=== PATIENT | male | born 1965 | race Caucasian/White ===

== ENCOUNTER 2017-03-09 16:29 | Inpatient (IN) | payer BC ==
--- NOTE | ~2017-03-09 | US146 ---
[facility] A Service of [facility] & [facility] RADIOLOGY TEXT RESULTS PATIENT: PARTH ERICKSON LOCATION: C3A 316-01 : 66 UNIT #: [id number] AGE: [address]: Gavin Hansen MD SEX: M ORDER DR: [id number] [place] [id number] [facility]. [place], [place] [address] [id number] MR#: [id number] Acc #: [id number] NAME: PARTH ERICKSON : 1965 SEX: M STUDY DATE/TIME: 03/13/2017 15:31 UNIT: C3A PCU ROOM: [facility] STUDY DESCRIPTION: US Vein Map Hemodial Access Attending Physician: Gavin Hansen M.D. Ordering Physician: Samreen Diana M.D. Primary Care Physician: Naif Matos M.D. MEDICAL IMAGING REPORT This report is preliminary unless electronic signature is present EXAM Bilateral upper extremity venous mapping. HISTORY Chronic renal disease, on dialysis. FINDINGS The right and left cephalic and basilic veins are widely patent throughout their course without evidence of thrombosis or intraluminal debris. The right cephalic vein is 8 mm proximal arm, 1.1 mm mid-arm, 0.8 mm distal arm, 1.6 mm at the elbow, 0.8 mm proximal forearm, 1.0 mm mid-forearm, and 1.7 mm distal forearm. The right basilic vein is 5.0 mm proximal arm, 3.4 mm mid-arm, 3.4 mm distal arm, 2.6 mm at the elbow, 2.8 mm proximal forearm, 2.2 mm mid-forearm, and 1.2 mm distal forearm. The left cephalic vein is 3.8 mm proximal arm, 3.6 mm at the mid- and distal forearm, 3.6 mm at the elbow, 2.7 mm proximal forearm, 2.4 mm mid-forearm, and 2.0 mm distal forearm. The left basilic vein is 4.2 mm proximal arm, 3.2 mm mid-arm, 3.1 mm distal arm, 2.8 mm at the elbow, 2.1 mm proximal forearm, 1.2 mm mid-forearm, and 0.9 mm distal forearm. The right and left brachial arteries are widely patent with normal appearing waveforms. IMPRESSION 1. No evidence of right or left upper extremity superficial venous thrombosis. 2. The right cephalic vein is not adequate for use as a hemodialysis access. 3. The right basilic vein is adequate for use as a hemodialysis access from the proximal arm to the proximal forearm. 4. The left cephalic vein is adequate for use as a hemodialysis access from the proximal arm to the mid-forearm. [facility] A Service of [facility] RADIOLOGY TEXT RESULTS PATIENT: PARTH ERICKSON LOCATION: A 316-01 : 66 UNIT #: [id number] AGE: [address]: Gavin Hansen MD SEX: M ORDER DR: 5. The left basilic vein is adequate for use as a hemodialysis access from the proximal arm to the elbow. Dictated by... Samreen Diana M.D. THIS IS AN ELECTRONICALLY VERIFIED REPORT Samreen Diana M.D. at 03/21/2017 11:01 AM PEDRO LUIS/elijah TD: 03/13/2017 22:42 JOB #: [id number] MEDICAL IMAGING REPORT Page 1 of 1 COPY
--- NOTE | ~2017-03-09 | CR63 ---
[facility] A Service of [facility] RADIOLOGY TEXT RESULTS PATIENT: PARTH ERICKSON LOCATION: [facility] 316-01 : 66 UNIT #: [id number] AGE: [address]: Gavin Hansen MD SEX: M ORDER DR: [id number] [facility] [address] [facility]. [place], [place] [address] [id number] I MR#: [id number] Acc #: [id number] NAME: PARTH ERICKSON : 1965 SEX: M STUDY DATE/TIME: 03/12/2017 09:08 UNIT: [address] ROOM: [facility] STUDY DESCRIPTION: CR Chest 2 View Attending Physician: Gavin Hansen M.D. Ordering Physician: Gavin Hansen M.D. Primary Care Physician: Naif Matos M.D. MEDICAL IMAGING REPORT This report is preliminary unless electronic signature is present EXAM Chest 2 views, 03/12/2017 09:08 hours HISTORY Patient with shortness of air and cough today. History of hypertension, smoking, correlate with VQ scan performed today. COMPARISON 03/09/2017 FINDINGS Upright PA and lateral views of the chest demonstrate normal cardiac, mediastinal and hilar contours. Patchy right basilar density has improved since 03/09/2017. Lateral views suggest small bilateral effusions, right greater than left. IMPRESSION Patchy density at the right lung base and left lung base have improved from 03/09/2017. There is new blunting of the right costophrenic sulcus on the PA view not seen on 03/09/2017 with lateral views suggesting small to moderate bilateral effusions which are likely new. Dictated by... Consuelo Valdez M.D. THIS IS AN ELECTRONICALLY VERIFIED REPORT Consuelo Valdez M.D. at 03/12/2017 2:29 PM Eunice TD: 03/12/2017 10:10 JOB #: [id number] MEDICAL IMAGING REPORT [facility] A Service of [facility] & [facility] RADIOLOGY TEXT RESULTS PATIENT: PARTH ERICKSON LOCATION: A 316-01 : 66 UNIT #: [id number] AGE: [address]: Gavin Hansen MD SEX: M ORDER DR: Page 1 of 1 COPY
--- NOTE | ~2017-03-09 | CO ---
Unit #: [id number] #: [id number] Patient: PARTH ERICKSON [id number] [address] [address] [id number] I MR#: [id number] NAME: PARTH ERICKSON ROOM: 316 Age: 52 Sex: M Admission Date: 03/09/2017 : 1965 Attending Physician: Gavin Hansen M.D. Primary Care Physician: Naif Matos M.D. Consultation Date: 03/10/2017 CONSULTATION REPORT REASON FOR CONSULT Acute renal failure. Thank you very much for this consultation. HISTORY OF PRESENT ILLNESS The patient is a 52-year-old white male with a history of diabetes for more than 40 years as well as hypertension, who does not follow with a physician regularly. He has a history of significant hypertension, but has not been medicating that recently. For the last 3 days, he has developed some worsening shortness of breath with cough, which caused him to present to the emergency room. In the emergency room, he was found to have pneumonia and extremely elevated blood pressure as well as elevated creatinine to 5.9 with an eGFR of 10. He was subsequently admitted for further workup of his renal failure, treatment of his hypertension and his pneumonia, and Nephrology consult has been requested. 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 He denies any hematuria or dysuria. No history of kidney stones. No chronic NSAID use. He otherwise denies any chest pain or shortness of breath. No nausea, vomiting, or diarrhea today, but he has had nausea and some decreased appetite recently. No metallic taste in his mouth. No itching. He has noticed some pedal edema. No other complaints. PAST MEDICAL HISTORY As above. MEDICATIONS His current medications at home include Excedrin and insulin. ALLERGIES No known drug allergies. FAMILY HISTORY Noncontributory. SOCIAL HISTORY He does smoke. REVIEW OF SYSTEMS A 12-system review of systems is negative except as per HPI. PHYSICAL EXAMINATION VITAL SIGNS: Blood pressure 170s to 200s over 70s to 100s, heart rate 90s to 100s, respirations 18 to 20, T-max 99.8. Unit #: [id number] #: [id number] Patient: PARTH ERICKSON GENERAL: He is alert and oriented, in no acute distress. HEENT: Head is normocephalic and atraumatic. ENT; pupils are equal, round, and reactive to light. Oropharynx is clear. NECK: Supple. No JVD. LUNGS: Clear to auscultation bilaterally. HEART: Regular rate and rhythm. No murmurs, gallops, or rubs. ABDOMEN: Soft and nontender with positive bowel sounds. EXTREMITIES: He has trace lower extremity edema. NEUROLOGIC: Cranial nerves II through XII intact. Testing gait is not assessed. DIAGNOSTIC STUDIES LABORATORY RESULTS: Sodium 139, potassium 4.2, chloride 113, bicarb 19, BUN 53, creatinine 5.9, glucose 134, calcium 7.9. White count 10.4, hemoglobin 12.6, platelets 267. IMPRESSION 1. Acute kidney injury versus chronic kidney disease. The patient's eGFR is 10. Awaiting urinalysis and ultrasound. The patient likely has at least some chronic kidney disease from his history of diabetes and hypertension. Possibly nearing end-stage renal disease if this is truly chronic. He does have some uremic symptoms. Need to exclude obstruction, which will be determined by the ultrasound. 2. Hypertensive urgency. 3. Pneumonia. 4. Diabetes type 1. 5. Metabolic acidosis. PLAN Followup urinalysis and ultrasound. Titrate BP medications. Cardiology has started amlodipine already. We will start oral bicarbonate and check phosphorus and PTH level in the morning. Discussed continued NSAID avoidance. If the patient does appear to have severe chronic kidney disease, then we would recommend AV fistula placement during this hospitalization. He may not require dialysis initiation, but it will depend on his symptomatology. In any event, he is likely to need dialysis in the near future and therefore adequate preparation would be in his best interest. We will have further recommendations as his hospital course develops. Dictated by... Harshil Giraldo M.D. ALLYN/waldemar TD: 03/10/2017 16:49 JOB #: [id number] Unit #: [id number] #: [id number] Patient: PARTH ERICKSON CONSULTATION REPORT Page 1 of 1 X Harshil Giraldo MD X CONSULTATION REPORT
--- NOTE | ~2017-03-09 | CR72 ---
[facility] A Service of [facility] & [facility] RADIOLOGY TEXT RESULTS PATIENT: PARTH ERICKSON LOCATION: [facility] [address]-58 : 66 UNIT #: [id number] AGE: [address]: Ag Turcios MD SEX: M ORDER DR: [id number] [facility] [address] [place], [place] [address] [id number] MR#: [id number] Acc #: [id number] NAME: PARTH ERICKSON : 1965 SEX: M STUDY DATE/TIME: 03/09/2017 18:33 UNIT: [facility] ROOM: STUDY DESCRIPTION: CR Chest Single View Portable Attending Physician: Myke Enamorado M.D. Ordering Physician: Ed Doc Christopher Acosta Primary Care Physician: Naif Matos M.D. MEDICAL IMAGING REPORT This report is preliminary unless electronic signature is present EXAM Frontal chest 03/09/2017 INDICATIONS 52-year-old male with shortness of air, hypertension, cough; symptoms 3-4 days. Diabetes. Tobacco abuse. TECHNIQUE Frontal chest; no comparisons. FINDINGS Lung volumes are low. Cardiac silhouette is within normal limits. The vascularity is unremarkable. There is bronchovascular crowding. Hazy patchy opacities are present in the right lung base. These may represent areas of atelectasis or developing pneumonia in the appropriate clinical context. Probable atelectasis or, less likely, infiltrate in the left lung base. No effusion or pneumothorax. Imaging followup to clearing after appropriate therapy is recommended. IMPRESSION 1. Atelectasis or developing infiltrate in the right lung base. Probable atelectasis in the left lung base. Follow up to clearing recommended. STAT * RESULT Dictated by... Raghav Chavira M.D. THIS IS AN ELECTRONICALLY VERIFIED REPORT Raghav Chavira M.D. at 03/09/2017 10:30 PM TRICIA/maria eugenia [facility] A Service of [facility] & [facility] RADIOLOGY TEXT RESULTS PATIENT: PARTH ERICKSON LOCATION: [facility] [address]11-17 : [birth year] UNIT #: [id number] AGE: [address]: Ag Turcios MD SEX: M ORDER DR: TD: 03/09/2017 19:11 JOB #: [id number] MEDICAL IMAGING REPORT Page 1 of 1 COPY
--- NOTE | ~2017-03-09 | NM69 ---
[facility] A Service of [facility] & [facility] RADIOLOGY TEXT RESULTS PATIENT: PARTH ERICKSON LOCATION: [facility] : 67 UNIT #: [id number] AGE: [address]: Gavin Hansen MD SEX: M ORDER DR: [id number] [facility] [address] [place], [place] [address] [id number] I MR#: [id number] Acc #: [id number] NAME: PARTH ERICKSON : 1965 SEX: M STUDY DATE/TIME: 03/12/2017 10:54 UNIT: A PCU ROOM: [facility] STUDY DESCRIPTION: NM Pulm Vent and Perf Attending Physician: Gavin Hansen M.D. Ordering Physician: Sharmila Patton M.D. Primary Care Physician: Naif Matos M.D. MEDICAL IMAGING REPORT This report is preliminary unless electronic signature is present EXAM Ventilation-perfusion lung scan. HISTORY 52-year-old male with shortness of air cough, worsening over last 3 days. History of pneumonia. COMPARISON PA and lateral chest 03/12/2017. TECHNIQUE Ventilation-perfusion lung scan was performed in standard 8 projections. Perfusion agent 5.42 mCi technetium-99m MAA and ventilation agent 36 mCi technetium-99m DTPA aerosol. FINDINGS Examination demonstrates normal perfusion throughout all bronchopulmonary segments. Some central deposition of activity within the central airways on THE ventilation scan may be indicative of small airway disease. No ventilation-perfusion mismatches are identified. Study is considered low probability for pulmonary embolus. IMPRESSION 1. Low probability ventilation-perfusion lung scan for pulmonary embolus. 2. Central deposition of ventilatory agent may be indicative of underlying small airway disease. Dictated by... Gordo Juan M.D. THIS IS AN ELECTRONICALLY VERIFIED REPORT [facility] A Service of [facility] & [facility] RADIOLOGY TEXT RESULTS PATIENT: PARTH ERICKSON LOCATION: [facility] 316 : 66 UNIT #: [id number] AGE: [address]: Gavin Hansen MD SEX: M ORDER DR: Gordo Juan M.D. at 03/12/2017 3:57 PM EAN/maria eugenia TD: 03/12/2017 13:05 JOB #: [id number] MEDICAL IMAGING REPORT Page 1 of 1 COPY
--- NOTE | ~2017-03-09 | EKG ---
PATIENT: PARTH ERICKSON UNIT #: [id number] Ventricular Rate: 96 BPM Atrial Rate: 96 BPM P-R Interval: 140 ms QRS Duration: 82 ms Q-T Interval: 376 ms QTC Calculation(Bezet): 475 ms P Kenton: 76 degrees Calculated R Kenton: 84 degrees Calculated T Kenton: 34 degrees Diagnosis Line: Normal sinus rhythm Diagnosis Line: Nonspecific ST abnormality Diagnosis Line: Abnormal ECG Diagnosis Line: When compared with ECG of 09-MAR-2017 18:37, Diagnosis Line: Nonspecific T wave abnormality no longer evident Diagnosis Line: in Lateral leads Diagnosis Line: Confirmed by OG PICHARDO MD ([id number]) on Diagnosis Line: 03/12/2017 8:11:11 AM INTERPRETING MD: MARINO SCHWAB
--- NOTE | ~2017-03-09 | HP ---
Unit #: [id number] #: [id number] Patient: PARTH ERICKSON [id number] [address] [address] [id number] I MR#: [id number] NAME: PARTH ERICKSON ROOM: 81332 Age: 52 Sex: M Admission Date: 03/09/2017 : 1965 Attending Physician: Ag Turcios M.D. Primary Care Physician: Naif Matos M.D. HISTORY AND PHYSICAL CHIEF COMPLAINT Shortness of breath. DISCUSSION This is a 52-year-old gentleman who has insulin dependent diabetes history of hypertension, questionable chronic kidney disease. He has not seen any primary doctor for two years. He said he just gets insulin from over the counter. He said six months ago at physical he was told elevated blood pressure but he never went to the primary doctor to get the medications. He presented today to the emergency room which chief complaining of having shortness of breath which he described that he has been exposed to mold in the house with progressively worsening breath for three days shortness of breath and he decided to come to the ER. On arrival to ER blood pressure was found to be 221/96 and on further workup chest x-ray shows right lower lobe infiltrate. His BUN was 50, creatinine 5.9, abnormal D-dimer and patient is being admitted for pneumonia, hypertensive urgency and acute kidney injury for further workup and evaluation. He denies chest pain. He said he has been having nausea and vomiting four times today, denies any abdominal pain, denied chest pain. He has been having also edema on lower extremities. He denies any other compliant, feels sick, stomach upset. PAST MEDICAL HISTORY 1. History of insulin dependent diabetes. 2. History of hypertension. PAST SURGICAL HISTORY 1. History of appendectomy. 2. Right shoulder surgery. 3. History of tonsillectomy. 4. Bilateral shoulder surgery. MEDICATION FROM HOME 1. Excedrin Tension Headache. 2. Novolin N 30 units q.a.m. 3. Novolin N 20 units q.p.m. SOCIAL HISTORY He smokes half pack daily, denies alcohol, denies illicit drug use. FAMILY HISTORY Noncontributory. Unit #: [id number] #: [id number] Patient: PARTH ERICKSON REVIEW OF SYSTEMS CONSTITUTIONAL: He feels sick, denies fever. CARDIOVASCULAR: Positive for palpitation but no chest pain. GASTROINTESTINAL: Positive for nausea and vomiting. No abdominal pain. GENITOURINARY: Denies dysuria. SKIN: Denies rash. LYMPHATIC: Positive for bilateral lower leg swelling, ankle edema. PHYSICAL EXAMINATION GENERAL: On examination middle-aged man lying in the bed. On general examination he is alert, awake x3, in mild distress. He vomited x1 in front of me. VITAL SIGNS: His current vitals are following: Temperature is 91.5, heart rate 97, respiratory rate 16, blood pressure 221/96, oxygen 97% on room air. HEENT EXAMINATION: Pupils equally react to light and accommodation. Head is normocephalic and atraumatic. NECK: Supple. No JVD. LUNGS: Clear to auscultation. No rhonchi. No wheezing. HEART: S1, S2. A 2/6 systolic murmur. Tachycardia. SKIN: No rash. Warm. Dry. EXTREMITIES: Positive bilateral pedal edema. NEUROLOGIC: Alert and oriented x4. No focal neurologic deficit. PSYCH: Poor insight. DIAGNOSTIC STUDIES LABORATORY: Workup is following: Sodium 139, potassium 3.9, chloride 108, glucose 69, BUN 50, creatinine 5.9, LFT within normal limits, white count 10, hemoglobin 12, hematocrit 38, platelets 245, troponin less than 0.05, INR is 1, D-dimer 735. IMAGING: Chest x-ray shows right lower lobe infiltrate. ASSESSMENT AND PLAN 1. Right lower lobe pneumonia: Started patient on IV Rocephin and Zithromax. 2. Hypertensive urgency: Patient received labetalol in the emergency room 10 mg IV x1 and again 20 mg IV x1. Will start the patient on metoprolol p.o. and hydralazine on p.r.n. basis. 3. Heart murmur: Will get a 2D echo. 4. Insulin dependent diabetes: Blood sugar on lower side. Hold insulin Novolin. Place on sliding scale. 5. Acute kidney injury, questionable baseline, never saw a primary doctor for two years: Will ask Nephrology to evaluate. 6. Abnormal D-dimer: Get a V/Q scan. 7. Lower extremity edema: Will get TSH, 2D echo, BNP. 8. DVT prophylaxis: Will place the patient on renal dose Lovenox 30 mg subcu daily. Dictated by Christopher Messina/roderick Unit #: [id number] #: [id number] Patient: PARTH ERICKSON TD: 03/09/2017 20:54 JOB #: [id number] HISTORY AND PHYSICAL Page 1 of 1 X X HISTORY AND PHYSICAL
--- NOTE | ~2017-03-09 | CT134 ---
[facility] A Service of [facility] RADIOLOGY TEXT RESULTS PATIENT: PARTH ERICKSON LOCATION: [facility] 316- : 66 UNIT #: [id number] AGE: [address]: Gavin Hansen MD SEX: M ORDER DR: [id number] [address] [address] [id number] I MR#: [id number] Acc #: [id number] NAME: PARTH ERICKSON : 1965 SEX: M STUDY DATE/TIME: 03/13/2017 9:05 UNIT: [address] ROOM: [facility] STUDY DESCRIPTION: CT Guide Attending Physician: Gavin Hansen M.D. Ordering Physician: Ag Turcios M.D. Primary Care Physician: Naif Matos M.D. MEDICAL IMAGING REPORT This report is preliminary unless electronic signature is present PROCEDURE CT-guided right kidney biopsy INDICATION 52-year-old male with renal failure. Kidney biopsy was requested. Medications 4 mg Versed administered IV and 100 mcg fentanyl IV. Total of 40 minutes of conscious sedation time was monitored by appropriately credentialed radiology nursing staff. Risks, benefits and alternatives of the procedure discussed the patient informed consent was obtained. In the procedure room a timeout was performed confirming correct patient and procedure. All elements of maximum sterile-barrier technique utilized according to guidelines appropriate for the procedure. TECHNIQUE/FINDINGS Preliminary CT scan was performed with the patient in the prone position identifying the right kidney. The overlying skin was prepped and draped in the usual sterile fashion. 1% lidocaine utilized to anesthetize the skin and underlying subcutaneous tissues. Next under CT guidance, a 17-gauge guide needle was advanced into the lower pole of the right kidney. Through this access 3 core biopsies were achieved with an 18-gauge needle and sent to pathology. Needle was removed and a sterile dressing was applied. No immediate complications. IMPRESSION Technically successful CT-guided right kidney biopsy. Dictated by... [facility] A Service [facility] RADIOLOGY TEXT RESULTS PATIENT: PARTH ERICKSON LOCATION: [facility] 316-01 : 67 UNIT #: [id number] AGE: [address]: Gavin Hansen MD SEX: M ORDER DR: Bharathi Juan M.D. THIS IS AN ELECTRONICALLY VERIFIED REPORT Bharathi Juan M.D. at 03/14/2017 7:46 AM DONOVAN/sohan TD: 03/13/2017 22:32 JOB #: [id number] MEDICAL IMAGING REPORT Page 1 of 1 COPY
--- NOTE | ~2017-03-09 | A ---
[facility] Nutrition Therapy DATE: 03/15/17 Patient: PARTH ERICKSON Physician: BIPIN Address: [address] [place] [address] Room/Bed: [address] [place] [address], Zip: [place] [address] Admit Date: 03/09/17 Date of : 67 Height: 5 6 Weight: 161 73.1 NUTRITIONAL ASSESSMENT: REASON: PT SEEN FOR PT VERBAL DIET EDUCATION CONSULT HT: 5'6" ,WT: 160# (73 KG), BMI: 25.8 RD PROVIDED WRITTEN AND VERBAL CC+ RENAL DIET EDUCATION. RD PROVIDED LIST OF FOODS TO AVOID/LIMIT AND FOODS TO EAT MORE OFTEN. RD EMPHASIZED INCREASED PROTEIN NEEDS 2' PT ON HD. RD ALSO ENCOURAGED LOW SODIUM INTAKE WELL. PT AND REPORTED DRINKING DIET SODAS AND NOTING EATING STEAK. THIS RD ENCOURAGED PORTION CONTROL WELL ENCOURAGED WATER INTAKE. PT AND DEMONSTRATED UNDERSTANDING OF THE TOPIC. RD AVAILABLE UPON REQUEST. RECOMMENDATIONS: 1. ENCOURAGE COMPLIANCE OF CURRENT DIET ORDER- RENAL+CC DIET 2. RE-CONSULT RD IF FURTHER DIET EDUCATION NEEDED Respectfully, JOSE WILLIAM MS, RD, LD [facility] and Nutrition[facility] cc: client file
--- NOTE | ~2017-03-09 | DS ---
Unit #: [id number] #: [id number] Patient: PARTH ERICKSON [id number] [address] [address] [id number] I MR#: [id number] NAME: PARTH ERICKSON ROOM: 316 Age: 52 Sex: M Admission Date: 03/09/2017 : 1965 Discharge Date: 03/15/2017 Attending Physician: Gavin Hansen M.D. Primary Care Physician: Naif Matos M.D. DISCHARGE SUMMARY NOTE Dr. Turcios says this is a discharge note done in the way of an addendum to transfer note by Dr. Hansen on 03/14/2017. ADDENDUM The patient's hepatitis profile was available the following day. His hepatitis B surface antigen is noted to be nonreactive. As a result, the patient has been scheduled for a permanent dialysis chair at [facility] on Sunday, and Sunday. Appointment chair time is 12:20. As a result, the patient is being discharged home. DISCHARGE MEDICATIONS 1. Sodium bicarb 250 mg p.o. t.i.d. 2. Tylenol 650 mg p.o. q.6 h. p.r.n. 3. Coreg 25 mg p.o. b.i.d. 4. Norvasc 10 mg p.o. daily. 5. Lipitor 40 mg p.o. at nighttime. 6. Hydralazine 50 mg p.o. b.i.d. 7. Novolin N 30 units in the morning and 20 units in the evening. 8. Aspirin 81 mg daily. 9. Tums 1000 mg p.o. t.i.d. before meals. FOLLOWUP 1. The patient should follow up with dialysis as mentioned above. 2. Furthermore, he should follow up with Dr. Garcia 03/29/2017 at 9:15. 3. Dr. Kalpesh Howard in two to three weeks. Dictated by... Ag Turcios M.D. ANABEL/sadia TD: 03/17/2017 08:10 JOB #: [id number] Unit #: [id number] #: [id number] Patient: PARTH ERICKSON DISCHARGE SUMMARY Page 1 of 1 X Ag Turcios MD X DISCHARGE SUMMARY
--- NOTE | ~2017-03-09 | TOC ---
Unit #: [id number] #: [id number] Patient: PARTH ERICKSON [id number] [address] [place], [place] [address] [id number] I MR#: [id number] NAME: PARTH ERICKSON ROOM: 316 Age: 52 Sex: M Admission Date: 03/09/2017 : 1965 Attending Physician: Gavin Hansen M.D. Primary Care Physician: Naif Matos M.D. TRANSFER OF CARE SUMMARY CONSULTANTS 1. Dr. Suzette Baxter. 2. Dr. Harshil Giraldo. 3. Dr. Diana. ADMITTING DIAGNOSIS Shortness of breath. FURTHER DIAGNOSES 1. Hypertensive crisis which has resolved. 2. Kidney injury. 3. End stage renal disease requiring dialysis. 4. Possible acute kidney injury. 5. Diabetes mellitus, insulin dependent. 6. Noncompliant. HISTORY OF PRESENTING ILLNESS The patient is a 52-year-old man with a past medical history of diabetes mellitus, hypertension, questionable chronic kidney disease, who hasn't seen a primary care physician for years. Presented to the emergency room with a chief complaint of cough and shortness of breath. HOSPITAL COURSE Initially, his blood pressure was high up to 200s. He was noted to have hypertensive crisis. He was started on blood pressure medications. It slowly improved. His creatinine was elevated initially up to 5.9 with a BUN of 50. He mentions that he had a history of chronic kidney disease in the past. He hasn't seen any kidney doctor in the past. In the hospital course, nephrology services were consulted. Renal ultrasound was essentially normal. It did not show any shrunken kidneys. For further evaluation, a renal biopsy was done. Because of his worsening BUN and creatinine, he did get a Shiley catheter placed and he was dialyzed. There is also a plan to get him for outpatient hemodialysis and outpatient Shiley access placement. Vascular surgery was consulted. They are planning to schedule an outpatient AV fistula placement for him. Hepatitis serologies were sent. They are pending at this point. Once we have the hepatitis serologies, the plan is to discharge him and to set him up for an outpatient hemodialysis. The renal biopsy is pending at this point. I spoke with Dr. Harshil Giraldo, senior tax specialist, today. He said the patient was sent to [facility] and he will follow up with the result as an outpatient. For possible community-acquired pneumonia, he was started on Unit #: [id number] #: [id number] Patient: PARTH ERICKSON. He did mention that he was exposed to mold at home. We did send serum galactomannan and (1) antigen which are pending at this point. Once we have the results, will plan further. Kindly note, the final discharge summary will be dictated by me or my colleague at the time of actual discharge. Dictated by... Christopher Roy TD: 03/14/2017 12:28 JOB #: [id number] TRANSFER OF CARE SUMMARY Page 1 of 1 X X TRANSFER OF CARE SUMMARY
--- NOTE | ~2017-03-09 | US77 ---
[facility] A Service of [facility] & [facility] RADIOLOGY TEXT RESULTS PATIENT: PARTH ERICKSON LOCATION: [facility] 316-01 : [birth year] UNIT #: [id number] AGE: [address]: Gavin Hansen MD SEX: M ORDER DR: [id number] [facility] [address] [facility]. [place], [place] [address] [id number] I MR#: [id number] Acc #: [id number] NAME: PARTH ERICKSON : 1965 SEX: M STUDY DATE/TIME: 03/10/2017 12:35 UNIT: A PCU ROOM: [facility] STUDY DESCRIPTION: US Kidney Bilateral Complete Attending Physician: Gavin Hansen M.D. Ordering Physician: Gavin Hansen M.D. Primary Care Physician: Naif Matos M.D. MEDICAL IMAGING REPORT This report is preliminary unless electronic signature is present EXAM Bilateral renal ultrasound. HISTORY Acute renal insufficiency. Elevated BUN and creatinine. FINDINGS Ultrasound examination of both kidneys demonstrates borderline to mild right caliectasis. No pyelocaliectasis on the left. No renal mass, focal renal atrophy or perinephric fluid collection. Right kidney measures 10.1 cm in length and the left kidney measures 11.2 cm in length. Survey of the urinary bladder is normal. IMPRESSION 1. Borderline to mild right caliectasis. No hydronephrosis on the left. 2. No perinephric fluid collection or focal renal atrophy. 3. Survey of the urinary bladder is normal. Dictated by... Jaylon Pham M.D. THIS IS AN ELECTRONICALLY VERIFIED REPORT Jaylon Pham M.D. at 03/10/2017 10:36 PM JAGJIT/omar TD: 03/10/2017 17:17 JOB #: [id number] MEDICAL IMAGING REPORT Page 1 of 1 COPY
--- NOTE | ~2017-03-09 | XA93 ---
[facility] A Service of [facility] & [facility] RADIOLOGY TEXT RESULTS PATIENT: PARTH ERICKSON LOCATION: [facility] 316-01 : [birth year] UNIT #: [id number] AGE: [address]: Gavin Hansen MD SEX: M ORDER DR: [id number] [facility]. [place], [place] [address] [id number] I MR#: [id number] Acc #: [id number] NAME: PARTH ERICKSON : 1965 SEX: M STUDY DATE/TIME: 03/13/2017 9:39 UNIT: C3A PCU ROOM: 316 STUDY DESCRIPTION: XA CVC Tunneled WO Pump/Port Attending Physician: Gavin Hansen M.D. Ordering Physician: Dina Soni M.D. Primary Care Physician: Naif Matos M.D. MEDICAL IMAGING REPORT This report is preliminary unless electronic signature is present PROCEDURE Ultrasound and fluoroscopically guided placement of a tunneled dialysis catheter. INDICATIONS 52-year-old male with renal failure who needs dialysis access. The fluoro time was 1.5 minutes. The reference air kerma is 14 mGy. MEDICATIONS 1 mg Versed IV and 25 mcg fentanyl IV were utilized. Approximately 45 minutes of sedation time was monitored by appropriately credentialed radiology nursing staff. The patient is on IV Rocephin for antibiotic prophylaxis while in the hospital. The risks, benefits and alternatives of the procedure were discussed with the patient and informed consent was obtained. In the procedure room, a time-out was performed confirming correct patient and procedure. All elements of maximum sterile-barrier technique were utilized, according to guidelines appropriate for the procedure. TECHNIQUE/FINDINGS Ultrasound of the right internal jugular vein was performed. It is patent and compressible and an image was saved. Next, using full standard sterile-barrier technique, including sterile caps, gowns, gloves, masks, drapes, 2% Chlorhexidine for cutaneous antisepsis, and hand hygiene, real-time sterile ultrasound guidance was utilized with sterile gel and sterile probe cover and the right internal jugular vein was accessed using a 21-gauge micropuncture needle. Through this access and under fluoroscopic guidance, a Peel-Away sheath was advanced into the SVC. Next, a small incision was made below the right clavicle. The catheter was tunneled underneath the skin, through the jugular dermatotomy site. The catheter was then advanced through the sheath and the sheath was STS. [facility] A Service of [facility] RADIOLOGY TEXT RESULTS PATIENT: PARTH ERICKSON LOCATION: [facility] 316-01 : [birth year] UNIT #: [id number] AGE: [address]: Gavin Hansen MD SEX: M ORDER DR: peeled away. Spot image was taken, confirming satisfactory position with the tip of the catheter located in the upper right atrium. Catheter was flushed with heparin and sutured into place. The jugular dermatotomy site was closed using 4-0 Monocryl and Dermabond. The patient tolerated the procedure well, without immediate complications. IMPRESSION Technically successful placement of a right IJ tunneled dialysis catheter as described. Dictated by... Bharathi Juan M.D. THIS IS AN ELECTRONICALLY VERIFIED REPORT Bharathi Juan M.D. at 03/14/2017 7:45 AM DONOVAN/usha TD: 03/13/2017 22:09 JOB #: [id number] MEDICAL IMAGING REPORT Page 1 of 1 COPY
--- NOTE | ~2017-03-09 | EKG ---
PATIENT: PARTH ERICKSON UNIT #: [id number] Ventricular Rate: 90 BPM Atrial Rate: 90 BPM P-R Interval: 166 ms QRS Duration: 72 ms Q-T Interval: 376 ms QTC Calculation(Bezet): 459 ms P Hallock: 45 degrees Calculated R Hallock: 52 degrees Calculated T Hallock: 26 degrees Diagnosis Line: Normal sinus rhythm Diagnosis Line: Normal ECG Diagnosis Line: No previous ECGs available Diagnosis Line: Confirmed by CARLTON CORTEZ MD ([id number]) on Diagnosis Line: 03/10/2017 4:28:42 PM INTERPRETING MD: DIEGO SCHWAB
--- NOTE | ~2017-03-09 | CO ---
Unit #: [id number] #: [id number] Patient: PARTH ERICKSON [id number] [address] [address] [id number] I MR#: [id number] NAME: PARTH ERICKSON ROOM: 316 Age: 52 Sex: M Admission Date: 03/09/2017 : 1965 Attending Physician: Gavin Hansen M.D. Primary Care Physician: Naif Matos M.D. Consultation Date: 03/10/2017 CONSULTATION REPORT HISTORY OF PRESENT ILLNESS This is a 52-year-old white male patient, who has not seen a doctor for about 2 years, came to the ER with progressive dyspnea for several days. He denied any chest pains. His blood pressure was found to be 221/96. His troponin less than 0.09, BUN was 53, creatinine 5.9. He has history of diabetes, hypertension, and chronic kidney disease. Chest x-ray showed right lower lobe pneumonia. He is being treated with metoprolol 50 mg twice a day, and antibiotics. He denies any palpitation, dizziness, or syncope. He has progressive pedal edema. No history of rheumatic fever or congenital heart disease. PERSONAL HISTORY He smokes half a pack of cigarettes per day. 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 He lives at home with his . FAMILY HISTORY Negative for premature coronary artery disease or sudden . HOME MEDICATIONS Only Novolin 30 units in the morning and 20 units in the evening. PAST SURGICAL HISTORY Appendectomy, tonsillectomy, right shoulder surgery. REVIEW OF SYSTEMS No fever, chills, night sweats, or weight loss. All others are negative except as mentioned above. PHYSICAL EXAMINATION VITAL SIGNS: Blood pressure now is 181/96, heart rate 101 per minute, respiratory rate 18 per minute. GENERAL APPEARANCE: The patient is well developed. HEENT: Oral mucosa without cyanosis or pallor. No xanthelasma. NECK: No JVD. CARDIOVASCULAR: Regular rate and rhythm. PMI is nondisplaced on auscultation. S1 and S2 normal. No S3, S4, murmur, rubs, or clicks noted. VASCULAR: Carotid pulses are brisk without bruit. Abdominal aorta without bruit. Femoral and pedal pulses are normal with normal pulse amplitude. LUNGS: Few scattered rales noted. No wheezing noted. No accessory muscle use noted. ABDOMEN: Soft and nontender. No hepatosplenomegaly. RECTAL: Deferred. EXTREMITIES: Warm and dry. No cyanosis or clubbing. 3+ pedal edema Unit #: [id number] #: [id number] Patient: PARTH ERICKSON bilaterally. MUSCULOSKELETAL: No scoliosis. DERMATOLOGY: No stasis dermatitis. NEUROLOGIC: Alert and oriented x3. Pleasant affect. DIAGNOSTIC STUDIES LABORATORY RESULTS: Glucose 134, BUN is 53, creatinine 5.9. Sodium 139, potassium 4.2, WBC 11.9, hemoglobin is 11.7, hematocrit is 34.3, and platelet count 267,000. TSH 1.04. IMPRESSION Uncontrolled hypertension, right lower lobe pneumonia, diabetes, acute kidney injury, chronic kidney disease. PLAN The patient will be started on also amlodipine 10 mg daily. Review the EKG. Renal consult. Antibiotics. Thank you for letting me participate in his care. Dictated by... Suzette Baxter M.D. LINNETTE/waldemar TD: 03/11/2017 04:25 JOB #: [id number] CONSULTATION REPORT Page 1 of 1 X Suzette Baxter MD X CONSULTATION REPORT
--- NOTE | ~2017-03-09 | CO ---
Unit #: [id number] #: [id number] Patient: PARTH ERICKSON [id number] [facility]. [place], [place] [address] [id number] I MR#: [id number] NAME: PARTH ERICKSON ROOM: 316 Age: 52 Sex: M Admission Date: 03/09/2017 : 1965 Attending Physician: Gavin Hansen M.D. Primary Care Physician: Naif Matos M.D. Consultation Date: 03/12/2017 CONSULTATION REPORT REASON FOR CONSULTATION Placement of AV graft. CHIEF COMPLAINT Shortness of breath. HISTORY OF PRESENT ILLNESS This is a 52-year-old gentleman with insulin-dependent diabetes, history of hypertension, possibly chronic kidney disease. He has not seen primary care doctor for nearly 2 years. He is admitted to the hospital several days ago with worsening shortness of breath and was noted to be hypertensive in the 220s and chest x-ray demonstrated a right lower lobe infiltrate. He also was noted to have elevated BUN of 50 and a creatinine of 5.9. During his workup by his primary team and waste duster, it is felt that he has acute on chronic renal injury likely requiring long-term dialysis. We were asked to placement of AV graft fistula. Per his report, vein mapping has been ordered, and a consult for Interventional Radiology has been placed for placement of a tunneled dialysis catheter to be placed on 03/13/2017. The patient himself overall feels well. He notes that his shortness of breath is improving. He denies any significant history of pacemaker placement in his chest or central lines in his neck. The patient does not seem to be the most reliable historian. He is right handed. PAST MEDICAL HISTORY Includes insulin-dependent diabetes and hypertension. PAST SURGICAL HISTORY Includes appendectomy, bilateral shoulder surgery, tonsillectomy. MEDICATIONS At home; Excedrin, Novolin 30 units q.a.m., Novolin 20 units q.p.m. SOCIAL HISTORY Half a pack per day per chart, but the patient denies any active tobacco use. Denies any alcohol use, denies any illicit drug use. Lives with his . FAMILY HISTORY Denies any known bleeding disorders, clotting disorders, or aneurysms. REVIEW OF SYSTEMS Unit #: [id number] #: [id number] Patient: PARTH ERICKSON CONSTITUTIONAL: Denies any fevers or chills. EAR, NOSE, THROAT: Denies any ear pain or tinnitus, sore throat. RESPIRATIONS: Positive for shortness of breath, negative for cough. CARDIOVASCULAR: Denies any chest pain or palpitations. GI: Denies any nausea, vomiting, or diarrhea. : Denies any hematuria. HEME: Denies any easy bruising. ENDOCRINE: Denies any excessive thirst or hunger. MUSCULOSKELETAL: Denies any back pain or neck pain. INTEGUMENTARY: Denies any rash or pruritus. PHYSICAL EXAMINATION VITAL SIGNS: Temperature 98.4, heart rate 100, blood pressure 170/66, respirations 18. CONSTITUTIONAL: Well-appearing. EYES: No scleral icterus. NECK: No JVD or carotid bruit. LYMPH: No lymphadenopathy in the neck or groins. CARDIOVASCULAR: Regular rate and rhythm. PULSE: 2+ radial pulses, 2+ brachial pulses, 2+ femoral pulses. EXTREMITIES: Right upper extremity, no edema. Left upper extremity, no edema, dressing over left antecubital fossa. RESPIRATIONS: Nonlabored respirations. GI: Soft, nontender, and nondistended. No palpable pulsatile masses. SKIN: No rashes or ulcerations. PSYCH: Normal mood and affect. DIAGNOSTIC STUDIES LABORATORY RESULTS: WBC 12.0, hematocrit 33.6, platelets 250. Sodium is 136, potassium 4.8, chloride 103, CO2 of 17, BUN 80, creatinine 7.4, glucose 80. ASSESSMENT AND PLAN A 52-year-old gentleman admitted with acute on chronic renal disease, as well as right lower lobe pneumonia, as well as systemic hypertension. 1. Tunneled dialysis catheter apparently is being placed tomorrow by Interventional Radiology. Per charting, plans are for the patient to be discharged for outpatient dialysis. I will follow up on the vein mapping, but we can set him up for an outpatient, elective fistula versus graft depending on what the ultrasound shows. 2. Probably we would like to get a chest x-ray before his operation to make sure that his pneumonia has cleared. 3. We will see the patient tomorrow and ensure follow up of his care. Dictated by... Bert Garcia M.D. Destiny TD: 03/12/2017 23:20 JOB #: [id number] Unit #: [id number] #: [id number] Patient: PARTH ERICKSON CONSULTATION REPORT Page 1 of 1 X X CONSULTATION REPORT
[~2017-03-09 16:29] MED LIST: CLEOCIN HCL300 M1 PO
[2017-03-09 18:47] LABS: BASOPHIL# 0.1 X10e3 (0-0.3); BASOPHIL% 0.6 % (0-2.5); EOSINOPHIL% 0.5 % (0.0-7.0); HEMATOCRIT 38.1 % (38.0-50.0); HEMOGLOBIN 12.6 gm/dL (13.0-16.0); LYMPHOCYTE# 0.8 X10e3 (1.0-3.5); LYMPHOCYTE% 7.8 % (17.0-45.0); MEAN CELL VOLUME 98.2 FL (83-96); MEAN CORPUSCULAR HEMOGLOBIN 32.4 PG (28-34); MEAN PLATELET VOLUME 8.9 FL (6.5-11.5); MONOCYTE# 0.4 X10e3 (0-1.0); MONOCYTE% 3.6 % (3.0-12.0); NEUTROPHIL# 9.1 X10e3 (1.5-7.1); NEUTROPHIL% 87.5 % (40-75); PLATELET COUNT 245 X10e3 (140-420); RED BLOOD COUNT 3.88 X10e (3.90-5.60); RED CELL DISTRIBUTION WIDTH 12.9 % (11.0-15.5); WHITE BLOOD COUNT 10.4 X10e3 (4.0-10.5)
[2017-03-09 18:51] LABS: DIFF IND NO
[2017-03-09 18:59] LABS: PROTHROMBIN TIME (PATIENT) 10.3 SECONDS (9.6-11.5)
[2017-03-09 19:00] LABS: POC - CKMB 4.8 ng/mL (0.0-7.9); POC - TROPONIN <0.05 ng/mL (<=0.05)
[2017-03-09 19:03] LABS: ALBUMIN SERUM 2.8 g/dL (3.5-5.0); BILIRUBIN, DIRECT 0.1 mg/dL (0.0-0.2); BILIRUBIN,INDIRECT 0.4 mg/dL (0.0-0.9); BILIRUBIN,TOTAL 0.5 mg/dL (0.2-2.0); BUN/CREATININE RATIO 8.47; CREATININE SERUM 5.9 mg/dL (0.6-1.4); GLOM FILT RATE Estimated 10.1 mL/min (>60); POTASSIUM 3.9 mmol/L (3.5-5.1); PROTEIN TOTAL SERUM 6.6 g/dL (6.0-8.3)
[2017-03-09] MEDS ORDERED: EXCEDRIN TENSI1 EACH PO (19:27)
[2017-03-09] MEDS ORDERED: NOVOLIN 70100 UNITS/ SUBQ ×2 (19:27)
[2017-03-09] MEDS ORDERED: NOVOLIN N100 UNIT/1 SUBQ ×2 (19:34)
[2017-03-09 20:23] LABS: POC - CKMB 6.2 ng/mL (0.0-7.9); POC - TROPONIN 0.09 ng/mL (<=0.05)
[2017-03-10 02:39] LABS: BASOPHIL# 0.1 X10e3 (0-0.3); BASOPHIL% 0.5 % (0-2.5); DIFF IND NO; HEMATOCRIT 34.3 % (38.0-50.0); HEMOGLOBIN 11.7 gm/dL (13.0-16.0); LYMPHOCYTE% 8.8 % (17.0-45.0); MEAN CELL VOLUME 94.5 FL (83-96); MEAN CORPUSCULAR HEMOGLOBIN 32.2 PG (28-34); MEAN CORPUSCULAR HGB CONC 34.1 g/dL (30-36); MEAN PLATELET VOLUME 8.2 FL (6.5-11.5); MONOCYTE# 0.4 X10e3 (0-1.0); MONOCYTE% 3.7 % (3.0-12.0); NEUTROPHIL# 10.3 X10e3 (1.5-7.1); PLATELET COUNT 267 X10e3 (140-420); RED BLOOD COUNT 3.63 X10e (3.90-5.60); RED CELL DISTRIBUTION WIDTH 12.8 % (11.0-15.5); WHITE BLOOD COUNT 11.9 X10e3 (4.0-10.5)
[2017-03-10 03:09] LABS: BUN/CREATININE RATIO 8.98; CALCIUM SERUM 7.9 mg/dL (8.4-10.2); CREATININE SERUM 5.9 mg/dL (0.6-1.4); GLOM FILT RATE Estimated 10.1 mL/min (>60); POTASSIUM 4.2 mmol/L (3.5-5.1)
[2017-03-10 03:51] LABS: %MB 2.7 % (0.0-4.0); MB 5.9 ng/ml
[2017-03-10 09:22] LABS: %MB 1.7 % (0.0-4.0); MB 5.5 ng/ml
[2017-03-11 07:27] LABS: BUN/CREATININE RATIO 9.23; CALCIUM SERUM 7.9 mg/dL (8.4-10.2); CREATININE SERUM 6.5 mg/dL (0.6-1.4); PHOSPHOROUS 5.1 mg/dL (2.5-4.6); POTASSIUM 4.3 mmol/L (3.5-5.1)
[2017-03-11 07:35] LABS: HEMATOCRIT 33.9 % (38.0-50.0); HEMOGLOBIN 11.2 gm/dL (13.0-16.0); MEAN CELL VOLUME 97.4 FL (83-96); MEAN CORPUSCULAR HEMOGLOBIN 32.3 PG (28-34); MEAN CORPUSCULAR HGB CONC 33.1 g/dL (30-36); MEAN PLATELET VOLUME 9.3 FL (6.5-11.5); RED BLOOD COUNT 3.48 X10e (3.90-5.60); RED CELL DISTRIBUTION WIDTH 12.7 % (11.0-15.5); WHITE BLOOD COUNT 9.4 X10e3 (4.0-10.5)
[2017-03-11 13:58] LABS: URINE APPEARANCE CLEAR; URINE BILIRUBIN NEG (NEG); URINE BLOOD 2+ (NEG); URINE COLOR YELLOW; URINE GLUCOSE 500 MG/DL (NEG); URINE KETONE TRACE (NEG); URINE LEUKOCYTE ESTERASE NEG (NEG); URINE NITRATE NEG (NEG); URINE PH 5.5 (5-8); URINE PROTEIN 3+ (NEG); URINE SPECIFIC GRAVITY 1.021 (1.003-1.035); URINE UROBILINOGEN 0.2 MG/DL (NEG)
[2017-03-11 14:00] LABS: URINE SQUAMOUS EPITHELIAL CELL FEW /[HPF]
[2017-03-11 14:17] LABS: U HYALINE CASTS AUWI 0-2 /[LPF]; URINE BACTERIA AUWI 1+ (NEGATIVE); URINE SPERM PRESENT; UWBCS1 AUWI 0-2 (0-5)
[2017-03-11 14:52] LABS: CREATININE,RANDOM URINE 127 mg/dL; POTASSIUM,URINE RANDOM 38 mmol/L; SODIUM URINE RANDOM 38 mmol/L; TOTAL PROTEIN,RANDOM URINE 948 mg/dl (<10)
[2017-03-12 07:39] LABS: HEMATOCRIT 33.6 % (38.0-50.0); HEMOGLOBIN 11.1 gm/dL (13.0-16.0); MEAN CELL VOLUME 97.6 FL (83-96); MEAN CORPUSCULAR HEMOGLOBIN 32.3 PG (28-34); MEAN CORPUSCULAR HGB CONC 33.1 g/dL (30-36); MEAN PLATELET VOLUME 9.1 FL (6.5-11.5); RED BLOOD COUNT 3.44 X10e (3.90-5.60); RED CELL DISTRIBUTION WIDTH 12.7 % (11.0-15.5)
[2017-03-12 08:00] LABS: PROTHROMBIN TIME (PATIENT) 10.7 SECONDS (9.6-11.5)
[2017-03-12 08:17] LABS: BUN/CREATININE RATIO 10.81; CALCIUM SERUM 7.9 mg/dL (8.4-10.2); CREATININE SERUM 7.4 mg/dL (0.6-1.4); GLOM FILT RATE Estimated 7.7 mL/min (>60); POTASSIUM 4.8 mmol/L (3.5-5.1)
[2017-03-13 04:21] LABS: HEMATOCRIT 30.3 % (38.0-50.0); HEMOGLOBIN 10.2 gm/dL (13.0-16.0); MEAN CELL VOLUME 96.5 FL (83-96); MEAN CORPUSCULAR HEMOGLOBIN 32.5 PG (28-34); MEAN CORPUSCULAR HGB CONC 33.6 g/dL (30-36); MEAN PLATELET VOLUME 9.3 FL (6.5-11.5); RED BLOOD COUNT 3.14 X10e (3.90-5.60); RED CELL DISTRIBUTION WIDTH 12.8 % (11.0-15.5); WHITE BLOOD COUNT 8.3 X10e3 (4.0-10.5)
[2017-03-13 04:42] LABS: PARTIAL THROMBOPLASTIN TIME 25.9 SECONDS (23.5-31.3); PROTHROMBIN TIME (PATIENT) 10.7 SECONDS (9.6-11.5)
[2017-03-13 04:52] LABS: BUN/CREATININE RATIO 11.23; CALCIUM SERUM 7.9 mg/dL (8.4-10.2); CREATININE SERUM 8.1 mg/dL (0.6-1.4); GLOM FILT RATE Estimated 6.9 mL/min (>60); POTASSIUM 4.6 mmol/L (3.5-5.1)
[2017-03-13 16:59] LABS: CALCIUM (PTHINTACT) 7.9 mg/dL (8.6-10.3)
[2017-03-14 06:16] LABS: BUN/CREATININE RATIO 9.6; CALCIUM SERUM 7.4 mg/dL (8.4-10.2); GLOM FILT RATE Estimated 12.4 mL/min (>60); POTASSIUM 3.9 mmol/L (3.5-5.1)
[2017-03-14 06:24] LABS: COMPLEMENT C3 119 mg/dL (90-180); COMPLEMENT C4 25 mg/dL (16-47)
[2017-03-15 00:50] LABS: HA AB IGM (HEPPAN) Nonreactive (()); HB CORE AB IGM (HEPPAN) Nonreactive (Nonreactive); HEP C AB (HEPPAN) Nonreactive (Nonreactive); HEP C AB SIGNAL TO CUTOFF 0.04 ratio (<1.00)
[2017-03-15 06:28] LABS: HEMATOCRIT 29.1 % (38.0-50.0); HEMOGLOBIN 9.9 gm/dL (13.0-16.0); MEAN CELL VOLUME 96.1 FL (83-96); MEAN CORPUSCULAR HEMOGLOBIN 32.6 PG (28-34); MEAN CORPUSCULAR HGB CONC 33.9 g/dL (30-36); MEAN PLATELET VOLUME 10.1 FL (6.5-11.5); RED BLOOD COUNT 3.03 X10e (3.90-5.60); RED CELL DISTRIBUTION WIDTH 12.5 % (11.0-15.5); WHITE BLOOD COUNT 6.9 X10e3 (4.0-10.5)
[2017-03-15 07:19] LABS: BUN/CREATININE RATIO 8.13; CALCIUM SERUM 7.4 mg/dL (8.4-10.2); CREATININE SERUM 4.3 mg/dL (0.6-1.4); GLOM FILT RATE Estimated 14.9 mL/min (>60); POTASSIUM 3.6 mmol/L (3.5-5.1)
[2017-03-15 10:44] LABS: HB S AG (HEPPAN) Nonreactive (Nonreactive)
[2017-03-15 13:50] LABS: ABN PROTEIN BAND 1 (SPE) 0.6 g/dL (()); ANA SCREEN Negative (Negative); HA AB IGM (HEPPAN) Nonreactive (()); HB CORE AB IGM (HEPPAN) Nonreactive (Nonreactive); HB S AG (HEPPAN) Nonreactive (Nonreactive); HEP C AB (HEPPAN) Nonreactive (Nonreactive); HEP C AB SIGNAL TO CUTOFF 0.05 ratio (<1.00); MYELOPEROXIDASE AB (PNL) <1.0 AI (<1.0); PROTEINASE-3 AB (PNL) <1.0 AI (<1.0); SPE A1GLOB (PNL) 0.4 g/dL (0.2-0.3); SPE A2GLOB (PNL) 0.8 g/dL (0.5-0.9); SPE ALB (PNL) 2.6 g/dL (3.8-4.8); SPE BETA 1 GLOBULIN 0.4 g/dL (0.4-0.6); SPE BETA 2 GLOBULIN 0.4 g/dL (0.2-0.5); SPE GAMMA (PNL) 1.1 g/dL (0.8-1.7); SPETP (PNL) 5.6 g/dL (6.1-8.1)
[2017-03-15] MEDS ORDERED: SODIUM BICARBO650 MG PO (14:59)
[2017-03-15] MEDS ORDERED: ACETAMINOPHEN650 M1 PO (15:01)
[2017-03-15] MEDS ORDERED: CARVEDILOL25 MG PO (15:02)
[2017-03-15] MEDS ORDERED: NORVASC10 MG PO (15:02)
[2017-03-15] MEDS ORDERED: LIPITOR40 MG PO (15:03)
[2017-03-15] MEDS ORDERED: HYDRALAZINE HCL50 MG PO (15:03)
[2017-03-15] MEDS ORDERED: TUMS500 MG PO (15:04)
[2017-03-15] MEDS ORDERED: ASPIRIN81 M2 PO (15:04)
== END 2017-03-15 19:36 | disposition home or self-care (01) | DRG 682 ==
LOC: CED 16:29 → CEDOF 20:00 → C3A PCU 20:00 → CED 20:24 → CEDOF 20:24 → C3A PCU 03-10 00:03 → CEDOF 03-10 00:03 → C3A PCU 03-10 05:38
PROVIDERS: Emergency Medicine; Internal Medicine; Internal Medicine Cardiovascular Disease; Radiology Diagnostic Radiology
PROC: B24BYZZ Ultrasonography of Heart with Aorta using Other Contrast (ICD-10-PCS; 2017-03-10)
PROC: 0TB03ZX Excision of Right Kidney, Percutaneous Approach, Diagnostic (ICD-10-PCS; principal; 2017-03-13)
PROC: 02H633Z Insertion of Infusion Device into Right Atrium, Percutaneous Approach (ICD-10-PCS; 2017-03-13)
PROC: B214YZZ Fluoroscopy of Right Heart using Other Contrast (ICD-10-PCS; 2017-03-13)
PROC: B244YZZ Ultrasonography of Right Heart using Other Contrast (ICD-10-PCS; 2017-03-13)
PROC: 5A1D60Z (ICD-10-PCS; 2017-03-13)
DX: N17.9 Acute kidney failure, unspecified (principal); J18.9 Pneumonia, unspecified organism; J96.00 Acute respiratory failure, unspecified whether with hypoxia or hypercapnia; E10.22 Type 1 diabetes mellitus with diabetic chronic kidney disease; I12.0 Hypertensive chronic kidney disease with stage 5 chronic kidney disease or end stage renal disease; I16.0 Hypertensive urgency; Z79.4 Long term (current) use of insulin; F17.210 Nicotine dependence, cigarettes, uncomplicated; R01.1 Cardiac murmur, unspecified; R60.0 Localized edema; Z71.3 Dietary counseling and surveillance; I25.2 Old myocardial infarction; N18.6 End stage renal disease; Z68.25 Body mass index [BMI] 25.0-25.9, adult; Z99.2 Dependence on renal dialysis
CPT/HCPCS: 36415; 71010; 71020; 76770; 76937; 77001; 77012; 78582; 80048; 80061; 80074; 80076; 81003; 82308; 82310; 82330; 82436; 82550; 82553; 82570; 82947; 83520; 83735; 83880; 83970; 84100; 84133; 84156; 84165; 84300; 84443; 84484; 85025; 85027; 85379; 85610; 85730; 86021; 86038; 86039; 86160; 86334; 87040; 87305; 88300; 93005; 93306; 94760; 96374; 99285; A9540; A9567; C1750; C1894; C9113; G0365; J0360; J0456; J0696; J1644; J1650; J1815; J2250; J2405; J3010